=== PATIENT | male | born 1985 | race Caucasian/White ===

== ENCOUNTER 2018-03-19 21:21 | Observation (INO) | payer OTHER ==
[2018-03-19] MEDS ORDERED: Glucagon* 1 MG VIAL IV ONE ×2 (21:46→22:24)
[2018-03-19] MEDS ORDERED: NS 0.9% 1000 ML* 1,000 ML IV ONE (21:47)
[2018-03-19] MEDS ORDERED: LORazepam INJ* 2 MG/ML 1 ML VIAL IV PUSH ONE (21:47)
[2018-03-19 22:02] LABS: ABS Basophils 0.1 10^3/ul (0-0.2); ABS Eosinophils 0.1 10^3/ul (0-0.6); ABS Monocytes 0.6 10^3/ul (0-0.8); ABS Neutrophils 6.8 10^3/ul (1.5-7.7); ABS Nucleated RBC 0 10^3/ul; Eosinophil % 1.5 % (0-6); Hematocrit 46 % (42-52); Lymphocyte % 20.8 % (25-47); Mean Corpuscular HGB Conc 35 g/dl (31-36); Mean Corpuscular Hemoglobin 31 pg (27-31); Mean Corpuscular Volume 89 fL (80-94); Mean Platelet Volume 7.4 um3 (7.4-10.4); Nucleated Red Blood Cells % 0.1; Platelet Count 175 10^3/ul (150-450); Red Cell Distribution Width 13 % (10.5-15); White Blood Count 9.7 10^3/ul (3.5-10.8)
[2018-03-19 22:24] LABS: EGFR Non-African American 77.9 (>60)
[2018-03-19] MEDS ORDERED: fentaNYL* 50 MCG/ML 2 ML VIAL (100 MCG VIAL) ONE (23:17)
[2018-03-19] MEDS ORDERED: Midazolam* 1 MG/ML 10 ML VIAL (10 MG) ONE (23:18)
--- NOTE | 2018-03-19 23:54 | CONS ---
CC: Dr. Loving * CONSULTATION REPORT: DATE OF CONSULT: 03/19/18 REQUESTING PHYSICIAN: Emergency room. PRIMARY CARE PHYSICIAN: Dr. Loving. INDICATION: Esophageal foreign body. HISTORY OF PRESENT ILLNESS: Mr. Real is a pleasant 33-year-old gentleman who was eating pork ribs earlier on today around 6 p.m. and according to his , took 2 to 3 bites and the pork became stuck. He has been unable to swallow his own saliva. He is spitting up water. He states this has never happened to him before. He does have acid reflux intermittently. He does not take anything for it. No family history of esophageal malignancies. He does have a history of dry skin and takes Claritin for that. PAST MEDICAL HISTORY: 1. Dry skin. 2. Intermittent GERD. SURGERIES: None. MEDICATIONS: Claritin. ALLERGIES: None. FAMILY HISTORY: No esophageal malignancies. REVIEW OF SYSTEMS: Twelve systems were reviewed, other than that mentioned in the HPI were unremarkable. PHYSICAL EXAM: Vital Signs: Temperature is 97.3, blood pressure is 139/71, pulse is 88, respiratory rate of 18, O2 sat is 97%. General: Well-appearing male sitting up, spitting into a bucket. Alert, oriented, pleasant, fluent. HEENT: Mucous membranes are moist without lesions, ulcers or exudate. Neck is supple. Trachea is midline. Head is normocephalic, atraumatic. Heart: Regular rate and rhythm. Lungs: Clear to auscultation. Abdomen: Positive bowel sounds. Soft, nontender, nondistended. No hepatosplenomegaly, masses, rebound or guarding. Skin is warm and dry. DIAGNOSTIC STUDIES/LAB DATA: Labs of note, white count is normal at 9.7, hemoglobin is 16, platelets of 175,000. Sodium is 138, glucose of 108. LFTs are unremarkable. Amylase and lipase are both normal. ASSESSMENT AND PLAN: This is a 33-year-old gentleman with esophageal foreign body. We do need to perform an emergent upper endoscopy. This will be performed in the emergency room. [id number] #: [id number] MTDD
--- NOTE | 2018-03-20 01:13 | ED ---
Lavon Ya Rebecca, scribed for Ritesh Villavicencio MD on 03/19/18 at 2145 . Complex/Multi-Sys Presentation - HPI Summary HPI Summary: Pt is a 33 y/o M who presents to ED c/o indigestion with N/V. At approximately 1730, the pt had a few ribs of spare ribs for dinner when he began experiencing symptoms. Unable to tolerate any PO intake. Sx aggravated by laying back, alleviated by nothing. PMHx GERD with N/V which is typically resolved by Tums and vomiting, though this episode is not. - History Of Current Complaint Chief Complaint: EDNauseaVomitDiarrh Time Seen by Provider: 03/19/18 21:31 Hx Obtained From: Patient Onset/Duration: Lasting Hours, Still Present Severity Currently: Moderate - 7/10 Aggravating Factor(s): Laying back Alleviating Factor(s): Nothing Associated Signs And Symptoms: Positive: Nausea, Vomiting - Allergies/Home Medications Allergies/Adverse Reactions: Allergies Allergy/AdvReac Type Severity Reaction Status Date / Time No Known Allergies Allergy Verified 03/19/18 21:25 Home Medications: Home Medications Loratadine [Tgt Allergy Relief] 10 mg PO DAILY 03/19/18 [History Confirmed 03/19] PMH/Surg Hx/FS Hx/Imm Hx Endocrine/Hematology History: Denies: Hx Diabetes, Hx Thyroid Disease Cardiovascular History: Denies: Hx Hypertension Respiratory History: Reports: Hx Asthma Denies: Hx Chronic Obstructive Pulmonary Disease (COPD) GI History: Reports: Hx Gastroesophageal Reflux Disease Denies: Hx Ulcer Neurological History: Reports: Hx Headaches Infectious Disease History: No Infectious Disease History: Denies: Hx Hepatitis, Hx Human Immunodeficiency Virus (HIV), Traveled Outside the [place] in Last 30 Days - Family History Known Family History: Positive: Respiratory Disease - Asthma - Social History Occupation: Employed Full-time Substance Use Type: Reports: Marijuana Review of Systems Negative: Fever Positive: Vomiting, Nausea, Other - Indigestion All Other Systems Reviewed And Are Negative: Yes Physical Exam - Summary Physical Exam Summary: VITAL SIGNS: Reviewed. GENERAL: ~Patient is a well-developed and nourished male. He is retching, bringing up saliva, and spitting. Patient seems uncomfortable. Patient is not in any acute respiratory distress. HEAD AND FACE: No signs of trauma. No ecchymosis, hematomas or skull depressions. No sinus tenderness. EYES: PERRLA, EOMI x 2, No injected conjunctiva, no nystagmus. EARS: Hearing grossly intact. Ear canals and tympanic membranes are within normal limits. MOUTH: Oropharynx within normal limits. NECK: Supple, trachea is midline, no adenopathy, no JVD, no carotid bruit, no c- spine tenderness, neck with full ROM. CHEST: Symmetric, no tenderness at palpation LUNGS: Clear to auscultation bilaterally. No wheezing or crackles. CVS: Regular rate and rhythm, S1 and S2 present, no murmurs or gallops appreciated. ABDOMEN: Soft, non-tender. No signs of distention. No rebound no guarding, and no masses palpated. Bowel sounds are normal. EXTREMITIES: FROM in all major joints, no edema, no cyanosis or clubbing. NEURO: Alert and oriented x 3. No acute neurological deficits. Speech is normal and follows commands. SKIN: Dry and warm Triage Information Reviewed: Yes Vital Signs On Initial Exam: Initial Vitals Temp Pulse Resp BP Pulse Ox 97.3 F 88 18 139/71 97 03/19/18 21:23 03/19/18 21:23 03/19/18 21:23 03/19/18 21:23 03/19/18 21:23 Vital Signs Reviewed: Yes Diagnostics - Vital Signs Vital Signs Temp Pulse Resp BP Pulse Ox 03/19/18 21:35 73 128/83 96 03/19/18 21:23 97.3 F 88 18 139/71 97 - Laboratory Result Diagrams: 03/19/18 21:55 03/19/18 21:55 Lab Statement: Any lab studies that have been ordered have been reviewed, and results considered in the medical decision making process. Re-Evaluation - Re-Evaluation First Eval Re-Evaluation Time: 22:22 Comment: Pt still cannot drink water. Complex Multi-Symp Course/Dx Assessment/Plan: Pt is a 33 y/o M who presents to ED c/o indigestion with N/V since 1729, during which the pt had a few ribs of spare ribs for dinner. Unable to tolerate any PO intake. Sx aggravated by laying back. Prior similar episodes of N/V which are typically resolved by Tums and vomiting, though this one is not. Discussed care of pt with Dr. Pennington who will see the pt in the ED (see note for consultation details). In the ED course, pt received glucagon, fluids, and ativan. Discussed care of pt with Dr. Garay again at 2358 who reported he will admit the pt. Pt will be admitted with Dx of esophageal food impaction. - Diagnoses Provider Diagnoses: Food impaction of esophagus - Physician Notifications Discussed Care Of Patient With: Roddy Pennington Time Discussed With Above Provider: 21:54 Instructed by Provider To: Other - Making him aware of the pt. He will see the pt in the ED. Discussed care of pt with Dr. Pennington again at 2358 who stated he will admit the pt. Discharge - Sign-Out/Discharge Documenting (check all that apply): Discharge/Admit/Transfer - Admit - Discharge Plan Condition: Stable Disposition: ADMITTED TO [facility] Referrals: Myo Loving MD [Primary Care Provider] - The documentation as recorded by the Lavon silva Rebecca accurately reflects the service I personally performed and the decisions made by , Ritesh Villavicencio MD.
[2018-03-20] MEDS ORDERED: NS 0.9% 1000 ML* 1,000 ML IV SCH (03:30)
--- NOTE | 2018-03-20 03:52 | PRO ---
PROCEDURE REPORT: DATE OF PROCEDURE: 03/20/18 PROCEDURE: EGD. ENDOSCOPIST: Roddy Pennington MD INDICATION: Esophageal foreign body. MEDICATIONS GIVEN: 150 mcg IV fentanyl, 20 mg IV Versed. PROCEDURE IN DETAIL: After the EGD procedure including the risks, benefits, and alternatives, not limited to perforation, surgery and/or were explained to Mr. Real, written consent was then obtained. IV medication was given and a bite- block was placed between the teeth. An Olympus gastroscope was then inserted into the patient's mouth and advanced down the esophagus to the esophageal foreign body. It appears that he has multiple rings potentially consistent with the eosinophilic esophagitis. The patient was fairly combative at this point. He was trying to pull out of the restraints. He pulled off some of his telemetry leads. I did withdraw the scope, gave him more sedation, and reintubated him. Each time I did this, he seemed to become more and more agitated. I was able to use a [place] Net to take out a very large piece of the foreign body. Unfortunately, there is still more in there and at this point, he did become very combative and was ripping at his leads and IV's and unfortunately, as I gave him more sedation, he became more animated. I do wonder if he is experiencing a paradoxical reaction with medications. Given the fact that he was becoming a danger, I decided to terminate the procedure for safety standpoint. He will need to be taken to the operating room and have general anesthesia sedate him to make this a safer procedure. Unfortunately, I do have another esophageal foreign body that just came into the emergency room. By the time I am done with that, it will probably be close to 3 or 4 in the morning. We will make arrangements for the general anesthesia case hopefully first thing in the morning depending on the case load of anesthesia. The patient will be admitted to the hospital until that point. IMPRESSION: 1. EGD with partial removal of foreign body from the esophagus. 2. Incomplete removal due to the patient's combativeness and very high doses of sedation. Paradoxical reaction to conscious sedation. 3. The patient will need to be admitted to the hospital for an OBV and have general anesthesia see him and take him to the OR in a few hours from now for completion of his foreign body removal. This was discussed with the patient and his , they are in agreement. The patient does smoke marijuana on a daily basis and this is likely the reason he is resistant to conscious sedation. 4. Daily marijuana use. [id number]/[facility] #: [id number] JORGE
[2018-03-20] MEDS ORDERED: PROCHLORPERAZINE INJ 5 MG/ML 2 ML VIAL ONE (09:14)
[2018-03-20] MEDS ORDERED: Morphine VIAL* 4 MG/ML VIAL (1 ml vial) IV ONE (09:24)
[2018-03-20] MEDS ORDERED: PROCHLORPERAZINE INJ 5 MG/ML 2 ML VIAL IV ONE (10:00)
[2018-03-20] MEDS ORDERED: fentaNYL* 50 MCG/ML 5 ML VIAL (250 MCG VIAL) ONE (10:21)
[2018-03-20] MEDS ORDERED: Midazolam* 1 MG/ML 5 ML VIAL (5 MG) ONE (10:21)
[2018-03-20] MEDS ORDERED: Atracurium* 10 MG/ML 10 ML VIAL ONE (10:27)
--- NOTE | 2018-03-20 11:23 | RAD ---
Indication: Evaluate for free air. Single frontal view of the chest performed at 1055 hours was reviewed. No prior study is available for comparison. No mediastinal shift is noted. Heart is of normal size and configuration. Lung brooks appear clear. IMPRESSION: NO ACTIVE CARDIOPULMONARY DISEASE IS NOTED.
[2018-03-20] MEDS ORDERED: Neostigmine Methylsulfate* 1 MG/ML 10 ML VIAL (1 mg/ml) ONE (11:29)
[2018-03-20] MEDS ORDERED: Succinylcholine* 20 MG/ML 10 ML VIAL ONE (11:29)
[2018-03-20] MEDS ORDERED: Propofol* 10 MG/ML 20 ML BTL IV PUSH ONE (11:29)
[2018-03-20] MEDS ORDERED: Glycopyrrolate IV* 0.2 MG/ML 1 ML VIAL ONE (11:29)
[2018-03-20] MEDS ORDERED: Phenylephrine INJ* 10 MG/ML 1 ML VIAL (10 MG) ONE (11:29)
[2018-03-20] MEDS ORDERED: Lidocaine 2% PF * 5 ML VIAL ONE (11:29)
[2018-03-20] MEDS ORDERED: Dexamethasone IV* 4 MG/ML 1 ML (4 MG) ONE (11:29)
[2018-03-20] MEDS ORDERED: Ondansetron INJ* 2 MG/ML VIAL ONE (11:29)
[2018-03-20] MEDS ORDERED: Flumazenil* 0.1 MG/ML 5 ML MDV ONE (12:01)
--- NOTE | 2018-03-20 13:18 | PRO ---
DATE OF PROCEDURE: 03/20/2018. PROCEDURE PERFORMED: EGD with foreign body removal and biopsies. REFERRING PHYSICIAN: None. MEDICATIONS GIVEN: Per the anesthesia staff. PROCEDURE: After the EGD procedure, including the risks, benefits, and alternatives, not limited to perforation, surgery and/or were explained to Mr. Real, written consent was then obtained. Sedation was administered by Dr. Tompkins from Anesthesia services in the operating room. An Olympus gastroscope was then inserted into the patient's mouth and advanced down the esophagus. At 24 cm fr om the incisors, the previously seen esophageal foreign body was again encountered. Numerous rings w ere in this area. I did use various instruments including a [place] net, a regular snare, regular biops y forceps, and then the [place] biopsy forceps to slowly pick away at the food bolus. I did spend ap proximately an hour in the entirety of the procedure trying to gently whittle it down and eventually it was small enough I could grasp it with the [place] forceps. I tried to pull it out; however, it w ould not move up and I gently pushed it and it easily then slid down the remainder of the esophagus a nd into the stomach. There were multiple rings at the 24 cm sandi likely consistent with eosinophilic esophagitis. The rest of the esophagus appeared very inflamed with erosive esophagitis. At the dist al esophagus, there were two large what appeared to be inflammatory nodules. I did take a biopsy of the one. There was grade C/D erosive esophagitis at this area too. The scope was advanced through t he GE junction and into the body of the stomach. Retroflex views and forward views were unremarkable. The scope was advanced through a widely patent pylorus, into the duodenal bulb, and into the distal duodenum, both of which were unremarkable. The scope was withdrawn from the patient. He tolerated the procedure well and was returned to the recovery room in stable condition. IMPRESSION: 1. Complete upper endoscopy into the distal duodenum with esophageal foreign body removal and biopsi es. 2. Likely eosinophilic esophagitis. 3. Erosive esophagitis. 4. He needs to start a PPI and Carafate. I will follow- up on the biopsies . He is going to need a repeat EGD in six to eight weeks from now. He will be returned to his [facility]pi [facility] room. I will watch him over the next few hours and see how he does to determine whether or not I can discharge him home safely tonight. [id number]/[facility] #: [id number]
[2018-03-20] MEDS ORDERED: Pantoprazole IV* 40 MG IV ONE (14:00)
[2018-03-20] MEDS ORDERED: Sucralfate SUSP 1 GM/10 ml 10 ML UDC PO ONE (14:00)
--- NOTE | 2018-03-20 16:27 | DS ---
DATE OF ADMISSION: 03/20/2018. DATE OF DISCHARGE: 03/20/2018, 24 hour OBV. DIAGNOSES: 1. Esophageal foreign body. 2. Eosinophilic esophagitis. HOSPITAL COURSE: The patient was admitted on the morning of the after an attempted EGD in the emergency room failed to remove his esophageal foreign body due to the patient's combativeness. I admitted him to the hospital and then took him to the operating room with general anesthesia and removed his esophageal foreign body. It appears that he has eosinophilic esophagitis, potentially severe erosive esophagitis. A biopsy was obtained from the GE junction. The patient was returned to his hospital bed feeling well. He did have a clear liquid diet with no increase in his pain, and his vital signs were stable and safe to be discharged. DISCHARGE DIAGNOSES: 1. Removal of esophageal foreign body. 2. Eosinophilic esophagitis. 3. Erosive esophagitis. DISCHARGE MEDICATIONS: 1. Loratadine. 2. Omeprazole 20 mg twice a day. 3. Carafate 1 gm three times a day. FOLLOW-UP: He will need a repeat EGD in six to eight weeks from now. We will call to arrange. [id number]/[facility] #: [id number] JORGE
[2018-03-20 16:58] VITALS: BP 134/82
--- NOTE | 2018-03-25 10:42 | HP ---
HISTORY AND PHYSICAL: DATE OF ADMISSION: 03/20/18 INDICATION: Esophageal foreign body. HISTORY OF PRESENT ILLNESS: Mr. Real is a 33-year-old gentleman who came into the emergency room late last night with an esophageal foreign body, I attempted to remove the foreign body from his esop hagus in the emergency room. However, he developed a paradoxical reaction to my conscious sedation a nd for safety reasons I decided to terminate the procedure. I was able to get out some of the pork f rom his esophagus; however, he still has some left. He will need to be admitted to the hospital and have anesthesiology services provide general anesthesia in the operating room for further removal of his foreign body. PAST MEDICAL HISTORY: GERD. PAST SURGICAL HISTORY: None. MEDICATIONS: Include Claritin. ALLERGIES: None. FAMILY HISTORY: Noncontributory. REVIEW OF SYSTEMS: Twelve systems were reviewed and other than that mentioned in the HPI are unremar kable. PHYSICAL EXAMINATION GENERAL: Well-appearing male, in no apparent distress, sleeping from conscious sedation, easily arou sable. VITAL SIGNS: Temperature is 97.3, blood pressure 139/71, pulse is 88, respiratory rate of 18, O2 sat 97%. HEENT: Mucous membranes are moist, without lesions, ulcers or exudates. Head is normocephalic, atra umatic. NECK: Supple. Trachea is midline. LUNGS: Clear to auscultation bilaterally. No wheezes, rales or rhonchi. HEART: Regular rate and rhythm, tachycardic, no murmurs, rubs or gallops. ABDOMEN: Obese, positive bowel sounds. Soft, nontender, nondistended. No hepatosplenomegaly, omar s, rebound or guarding. ASSESSMENT AND PLAN: The patient will be admitted to the hospital for a 23-hour OBV. He will be sc heduled to have his foreign body removed in the operating room with Anesthesia help. I will make arr angements for this in the next few hours. [id number]/[facility] #: [id number]
--- NOTE | 2018-03-25 12:29 | PRO ---
PROCEDURE REPORT: ADDENDUM: Total time of procedure greater than 1 hour and 15 minutes. [id number]/[facility] #: [id number] MTDAbdiel
== END 2018-03-20 16:28 | disposition home or self-care (01) ==
LOC: ED 21:21 → SSU 03-20 00:44
PROVIDERS: ADMIT Internal Medicine Gastroenterology; ATTEND Internal Medicine Gastroenterology
PROC: 0DB58ZX Excision of Esophagus, Via Natural or Artificial Opening Endoscopic, Diagnostic (ICD-10-PCS; 2018-03-20)
PROC: 0DC58ZZ Extirpation of Matter from Esophagus, Via Natural or Artificial Opening Endoscopic (ICD-10-PCS; 2018-03-20)
PROC: 0DC58ZZ Extirpation of Matter from Esophagus, Via Natural or Artificial Opening Endoscopic (ICD-10-PCS; principal; 2018-03-20 15:30)
DX: T18.128A Food in esophagus causing other injury, initial encounter (principal); X58.XXXA Exposure to other specified factors, initial encounter; Y92.9 Unspecified place or not applicable; K20.0 Eosinophilic esophagitis; K21.9 Gastro-esophageal reflux disease without esophagitis
CPT/HCPCS: 36415; 71045; 80053; 82150; 82943; 83690; 85025; 88305; 96374; 96375; 99156; 99157; 99285; A9270-GY; G0378; J0330; J0780; J1100; J1610; J2060; J2250; J2270; J2405; J2704; J2710; J3010

== ENCOUNTER 2019-04-14 10:43 | Emergency (ER) | payer OTHER ==
[2019-04-14] MEDS ORDERED: Lidocaine 1%* 5 ML VIAL ONE (11:17)
--- NOTE | 2019-04-14 11:18 | ED ---
Laceration/Wound HPI - HPI Summary HPI Summary: This pt is a 34 y/o [facility] to left second digit today. Pt reports he was using a hatchet to cut wood when he injured his left second digit with the hatchet. Denies any other injuries or symptoms. Pt is able to move his finger but has pain on his left second finger. His tetanus shot is UTD, his last one was in February 2017. - History of Current Complaint Stated Complaint: "LACERATION LT FINGER" Time Seen by Provider: 04/14/19 11:07 Hx Obtained From: Patient Mechanism of Injury: Sharp/Blunt Trauma Onset/Duration: Sudden Onset Aggravating: Nothing Alleviating: Nothing Timing: Constant Current Severity: Moderate Pain Intensity: 6 Pain Scale Used: 0-10 Numeric Associated Signs & Symptoms: Negative, Pain Related Hx: Other - last tetanus vaccine in February 2017 - Additional Pertinent History Primary Care Physician: RANDA - Allergy/Home Medications Allergies/Adverse Reactions: Allergies Allergy/AdvReac Type Severity Reaction Status Date / Time No Known Allergies Allergy Verified 04/14/19 10:48 PMH/Surg Hx/FS Hx/Imm Hx Endocrine/Hematology History: Denies: Hx Diabetes, Hx Thyroid Disease Cardiovascular History: Denies: Hx Hypertension Respiratory History: Reports: Hx Asthma Denies: Hx Chronic Obstructive Pulmonary Disease (COPD) GI History: Reports: Hx Gastroesophageal Reflux Disease Denies: Hx Ulcer Sensory History: Denies: Hx Contacts or Glasses, Hx Hearing Aid Opthamlomology History: Denies: Hx Contacts or Glasses Neurological History: Reports: Hx Headaches Infectious Disease History: No Infectious Disease History: Denies: Hx Hepatitis, Hx Human Immunodeficiency Virus (HIV), Traveled Outside the [place] in Last 30 Days - Family History Known Family History: Positive: Respiratory Disease - Asthma - Social History Alcohol Use: Rare Substance Use Type: Reports: Marijuana Substance Use Comment - Amount & Last Used: Patient smokes marijuana daily. Smoking Status (MU): Former Smoker Review of Systems Negative: Fever, Chills Cardiovascular: Negative Respiratory: Negative Gastrointestinal: Negative Skin: Other - POS: laceration on left second digit All Other Systems Reviewed And Are Negative: Yes Physical Exam - Summary Physical Exam Summary: VITAL SIGNS: Reviewed. GENERAL: Patient is a well-developed and nourished male who is lying comfortable in the stretcher. Patient is not in any acute respiratory distress. HEAD AND FACE: No signs of trauma. No ecchymosis, hematomas or skull depressions. No sinus tenderness. EYES: PERRLA, EOMI x 2, No injected conjunctiva, no nystagmus. EARS: Hearing grossly intact. Ear canals and tympanic membranes are within normal limits. MOUTH: Oropharynx within normal limits. NECK: Supple, trachea is midline, no adenopathy, no JVD, no carotid bruit, no c- spine tenderness, neck with full ROM. CHEST: Symmetric, no tenderness at palpation LUNGS: Clear to auscultation bilaterally. No wheezing or crackles. CVS: Regular rate and rhythm, S1 and S2 present, no murmurs or gallops appreciated. ABDOMEN: Soft, non-tender. No signs of distention. No rebound no guarding, and no masses palpated. Bowel sounds are normal. EXTREMITIES: FROM in all major joints, no edema, no cyanosis or clubbing. NEURO: Alert and oriented x 3. No acute neurological deficits. Speech is normal and follows commands. SKIN: Dry and warm. .U-shaped laceration about 2 cm on left second finger. Triage Information Reviewed: Yes Vital Signs On Initial Exam: Initial Vitals Temp Pulse Resp BP Pulse Ox 97.1 F 83 14 129/71 95 04/14/19 10:44 04/14/19 10:44 04/14/19 10:44 04/14/19 10:44 04/14/19 10:44 Vital Signs Reviewed: Yes Procedures - Laceration/Wound Repair 1 Location: upper extremity - left second digit Description: Irregular - U-shaped Anesthesia: 1.0%, [place] Length, Depth and Shape: 2 cm in length Laceration/Wound Explored: clean - and irrigated Suture Type: Other Number of Sutures: 7 - with 5-O Sterile Dressing Applied?: Yes - Bacitracin Diagnostics - Vital Signs Vital Signs Temp Pulse Resp BP Pulse Ox 04/14/19 10:44 97.1 F 83 14 129/71 95 - Laboratory Lab Statement: Any lab studies that have been ordered have been reviewed, and results considered in the medical decision making process. Re-Evaluation - Re-Evaluation First Eval Re-Evaluation Time: 11:38 Comment: Performed a laceration repair. He tolerated the procedure well. Laceration Repair Course/Dx - Course Assessment/Plan: This pt is a 34 y/o male [facility]/o laceration to left second digit today. Pt reports he was using a hatchet to cut wood when he injured his left second digit with the hatchet. Denies any other injuries or symptoms. Pt is able to move his finger but has pain on his left second finger. His last tetanus shot was in February 2017. He will f/u wirh Dr. Dela Cruz. Laceration was repaired without any complications. The patient will be discharged home with follow-up from his PCP in the next 7-10 days for suture removals. Since the patient is up-to-date on vaccinations he was not given the tetanus booster. Patient is hemodynamically stable, alert and oriented 3. - Clinical Impression Provider Diagnoses: Laceration of finger Discharge - Sign-Out/Discharge Documenting (check all that apply): Patient Departure - Discharge home Patient Received Moderate/Deep Sedation with Procedure: No - Discharge Plan Condition: Stable Disposition: HOME Patient Education Materials: Care For Your Stitches (ED), Finger Laceration (ED ) Referrals: Moy Loving MD [Primary Care Provider] - Additional Instructions: FOLLOW UP WITH YOUR PRIMARY CARE PROVIDER IN 7-10 DAYS TO HAVE YOUR STITCHES REMOVED. RETURN TO THE EMERGENCY DEPARTMENT FOR ANY WORSENING OR NEW SYMPTOMS. - Billing Disposition and Condition Condition: STABLE Disposition: Home - Attestation Statements Document Initiated by Sahra: Yes Documenting Scribe: Ivette Ball Provider For Whom Sahra is Documenting (Include Credential): Juancho Taylor MD Scribe Attestation: Ivette Ya, scribed for Juancho Taylor MD on 04/14/19 at 1320. Scribe Documentation Reviewed: Yes Provider Attestation: The documentation as recorded by the Ivette silva accurately reflects the service I personally performed and the decisions made by me, Juancho Taylor MD Status of Scribe Document: Viewed
[2019-04-14] MEDS ORDERED: Lidocaine 1%* 5 ML VIAL INJ ONE (11:23)
[2019-04-14 11:50] VITALS: BP 112/45
== END 2019-04-14 11:50 | disposition home or self-care (01) ==
LOC: ED 10:43
DX: S61.211A Laceration without foreign body of left index finger without damage to nail, initial encounter (principal); W26.9XXA Contact with unspecified sharp object(s), initial encounter; Y93.89 Activity, other specified; J45.909 Unspecified asthma, uncomplicated; K21.9 Gastro-esophageal reflux disease without esophagitis; Z87.891 Personal history of nicotine dependence
CPT/HCPCS: 12001; 96374; 99282